=== PATIENT | female | born 1990 | race African-American/Black ===

== ENCOUNTER 2022-02-17 20:53 | Emergency (ER) | payer OTHER ==
[~2022-02-17] VITALS: Ht 157.5 cm; Wt 64.0 kg
== END 2022-02-18 00:16 | disposition home or self-care (01) ==
LOC: ER 20:53
DX: S20.219A Contusion of unspecified front wall of thorax, initial encounter (principal); W18.30XA Fall on same level, unspecified, initial encounter; Y93.9 Activity, unspecified; Y92.9 Unspecified place or not applicable; Y99.9 Unspecified external cause status

== ENCOUNTER 2022-03-09 09:22 | Emergency (ER) | payer OTHER ==
[~2022-03-09] VITALS: Ht 154.9 cm; Wt 64.0 kg
== END 2022-03-09 15:01 | disposition home or self-care (01) ==
LOC: ER 09:22
DX: U07.1 COVID-19 (principal)

== ENCOUNTER 2022-03-25 14:35 | Emergency (ER) | payer OTHER ==
[~2022-03-25] VITALS: Ht 157.5 cm; Wt 64.0 kg
[2022-03-25] MEDS ORDERED: TYLENOL (15:34)
[2022-03-25] MEDS ORDERED: ULTRACET PO (18:52)
== END 2022-03-25 19:03 | disposition home or self-care (01) ==
LOC: ER 14:35
DX: S93.401A Sprain of unspecified ligament of right ankle, initial encounter (principal); Y93.9 Activity, unspecified; Y92.9 Unspecified place or not applicable; Y99.9 Unspecified external cause status; Z88.6 Allergy status to analgesic agent; Z20.822 Contact with and (suspected) exposure to COVID-19

== ENCOUNTER → 2022-04-06 | Emergency (ER) | payer OTHER ==
[~2022-04-06] VITALS: Ht 157.5 cm; Wt 64.0 kg
[~2022-04-06] MED LIST: TYLENOL; ULTRACET PO
== END | disposition home or self-care (01) ==
LOC: ER 22:23
DX: F41.9 Anxiety disorder, unspecified (principal); F32.9 Major depressive disorder, single episode, unspecified; S99.911A Unspecified injury of right ankle, initial encounter; X58.XXXA Exposure to other specified factors, initial encounter; Y93.9 Activity, unspecified; Y92.9 Unspecified place or not applicable

== ENCOUNTER 2023-06-07 20:28 | Emergency (ER) | payer OTHER ==
[~2023-06-07] VITALS: Ht 157.5 cm; Wt 68.0 kg
== END 2023-06-07 21:56 | disposition home or self-care (01) ==
LOC: ER 20:28
DX: R53.81 Other malaise (principal); J06.9 Acute upper respiratory infection, unspecified; Z88.6 Allergy status to analgesic agent

== ENCOUNTER → 2023-06-23 | Emergency (ER) | payer OTHER ==
[~2023-06-23] VITALS: Ht 157.5 cm; Wt 68.0 kg
== END | disposition left against medical advice (07) ==
LOC: ER 06:46
DX: R53.81 Other malaise (principal); Z20.822 Contact with and (suspected) exposure to COVID-19; Z88.6 Allergy status to analgesic agent

== ENCOUNTER 2023-06-24 05:59 | Emergency (ER) | payer OTHER ==
[~2023-06-24] VITALS: Ht 157.5 cm; Wt 68.0 kg
== END 2023-06-24 06:40 | disposition home or self-care (01) ==
LOC: ER 05:59
DX: M62.830 Muscle spasm of back (principal)

== ENCOUNTER → 2023-06-25 | Emergency (ER) | payer OTHER ==
[~2023-06-25] VITALS: Ht 157.5 cm; Wt 68.0 kg
[2023-06-25 19:47] LABS: HEMATOCRIT 38.5 % (36.0-45.00); HEMOGLOBIN 12.9 g/dL (12.0-15.00); MEAN CELL VOLUME 86.9 fL (80.00-100.00); MEAN CORPUSCULAR HEMOGLOBIN 29.2 pg (27.00-32.0); MEAN CORPUSCULAR HGB CONC 33.6 g/dl (32.0-36.0); PLATELET COUNT 245 K/uL (150-450); RED BLOOD COUNT 4.42 M/uL (4.00-6.00); RED CELL DISTRIBUTION WIDTH 14.9 % (11.5-14.5)
[2023-06-25 20:18] LABS: ALBUMIN 3.4 gm/dL (3.4-5.0); BILIRUBIN TOTAL 0.47 mg/dL (0.3-1.2); CALCIUM 8.8 mg/dL (8.5-10.1); CREATININE SERUM 0.96 mg/dL (0.55-1.02); GFR 68.24; GLOBULINA 3.4 G/DL (2.4-3.5); POTASSIUM 3.12 mEq/L (3.5-5.1); TOTAL PROTEIN 6.8 gm/dL (6.4-8.2)
== END | disposition home or self-care (01) ==
LOC: ER 17:50
PROVIDERS: General Practice
DX: R53.81 Other malaise (principal)

== ENCOUNTER 2023-07-09 05:34 | Emergency (ER) | payer OTHER ==
[~2023-07-09] VITALS: Ht 157.5 cm; Wt 68.0 kg
[2023-07-09] MEDS ORDERED: CLONAZEPAM0.25 MG PO (05:47)
[2023-07-09] MEDS ORDERED: DEXAMETHASONE2 MG PO (08:34)
[2023-07-09] MEDS ORDERED: CYCLOBENZAPRINE10 MG PO (08:34)
[2023-07-09] MEDS ORDERED: PEPCID AC20 MG PO (08:34)
== END 2023-07-09 09:10 | disposition home or self-care (01) ==
LOC: ER 05:34
DX: R11.10 Vomiting, unspecified (principal); M54.9 Dorsalgia, unspecified; Z88.6 Allergy status to analgesic agent

== ENCOUNTER → 2023-07-20 | Emergency (ER) | payer OTHER ==
[~2023-07-20] MED LIST changes: +CLONAZEPAM0.25 MG PO; +CYCLOBENZAPRINE10 MG PO; +DEXAMETHASONE2 MG PO; +PEPCID AC20 MG PO
== END | disposition left against medical advice (07) ==
LOC: ER 18:20
DX: Z53.21 Procedure and treatment not carried out due to patient leaving prior to being seen by health care provider (principal)

== ENCOUNTER → 2023-08-14 | Emergency (ER) | payer OTHER ==
[~2023-08-14] VITALS: Ht 157.5 cm; Wt 70.3 kg
== END | disposition left against medical advice (07) ==
LOC: ER 18:19
DX: Z53.21 Procedure and treatment not carried out due to patient leaving prior to being seen by health care provider (principal)

== ENCOUNTER → 2023-08-16 | Emergency (ER) | payer OTHER ==
[~2023-08-16] VITALS: Ht 157.5 cm; Wt 69.4 kg
== END | disposition left against medical advice (07) ==
LOC: ER 01:42
DX: Z53.21 Procedure and treatment not carried out due to patient leaving prior to being seen by health care provider (principal)

== ENCOUNTER 2023-08-23 03:06 | Emergency (ER) | payer OTHER ==
[~2023-08-23] VITALS: Ht 157.5 cm; Wt 68.0 kg
[2023-08-23] MEDS ORDERED: CLONAZEPAM0.25 MG (03:13)
[2023-08-23] MEDS ORDERED: DOLOGESIC 500-1 EACH PO (06:55)
== END 2023-08-23 07:24 ==
LOC: ER 03:07
DX: S09.8XXA Other specified injuries of head, initial encounter (principal); Y08.89XA Assault by other specified means, initial encounter; Y93.89 Activity, other specified; Y92.832 Beach as the place of occurrence of the external cause; Y99.8 Other external cause status; Z88.6 Allergy status to analgesic agent